=== PATIENT | male | born 1985 | race Caucasian/White ===

== ENCOUNTER 2024-03-15 20:40 | Emergency (ER) | payer OTHER, MEDICAID ==
[~2024-03-15] VITALS: Ht 177.8 cm; Wt 81.6 kg
[2024-03-15] MEDS: IV NORMAL SALINE 1000 ML BAG IV ONE (20:45)
[2024-03-15] MEDS: PHENOBARBITAL SODIUM 130 MG/1 ML DISP.SYRIN IV ONE (21:05)
[2024-03-15] MEDS: THIAMINE HCL 100 MG TABLET PO ONE (21:05)
[2024-03-15] MEDS: LORAZEPAM 2 MG/1 ML VIAL IV ONE ×2 (21:05→22:34)
[2024-03-15] MEDS: levETIRAcetam IV 1,000 MG in IV DEXTROSE 5% 100 ML IV ONE (21:05)
[2024-03-15] MEDS: FOLIC ACID 1 MG TABLET PO ONE (21:05)
[2024-03-15] MEDS ORDERED: levETIRAcetam 500 MG/5 ML VIAL IV ONE (21:06)
[2024-03-15 21:07] LABS: BASOPHILS # (AUTO) 0.1 K/UL (0.0-0.2); BASOPHILS % (AUTO) 0.8 % (0.0-2.0); DIFFERENTIAL COMMENT 1; EOSINOPHILS % (AUTO) 0.1 % (0.0-7.0); HEMATOCRIT 37.7 % (36.7-47.1); HEMOGLOBIN 13.3 g/dL (12.5-16.3); LYMPHOCYTES # (AUTO) 1.7 K/uL (0.8-4.8); LYMPHOCYTES % (AUTO) 21.9 % (20.5-51.5); MEAN CORPUSCULAR HEMOGLOBIN 30.9 uug (23.8-33.4); MEAN CORPUSCULAR HGB CONC 35 g/dL (32.5-36.3); MEAN CORPUSCULAR VOLUME 87.8 fL (73.0-96.2); MONOCYTES # (AUTO) 0.8 K/uL (0.1-1.30); MONOCYTES % (AUTO) 9.6 % (0.0-11.0); NEUTROPHILS # (AUTO) 5.4 K/uL (1.8-8.9); NEUTROPHILS % (AUTO) 67.6 % (38.5-71.5); PLATELET COUNT (AUTO) 101 K/uL (152-348); RED CELL DISTRIBUTION WIDTH 14.6 % (12.1-16.2); WHITE BLOOD COUNT (AUTO) 7.9 K/uL (3.6-10.2)
[2024-03-15 21:12] LABS: ALBUMIN 4.1 g/dL (3.4-5.0); CALCIUM 9.2 mg/dL (8.5-10.1); MAGNESIUM 1.7 mg/dL (1.8-2.4); TOTAL PROTEIN, SERUM 8.4 g/dL (6.4-8.2)
[2024-03-15 21:17] LABS: POTASSIUM 2.5 mmol/L (3.5-5.1)
[2024-03-15 21:18] LABS: ETHANOL < 3 MG/DL (0-10); LACTIC ACID 8.8 mmol/L (0.4-2.0)
[2024-03-15] MEDS: POTASSIUM CHLORIDE 50 ML IV SCH (21:30)
[2024-03-15] MEDS ORDERED: POTASSIUM CHLORIDE 200 ML ONE (21:40)
[2024-03-15] MEDS ORDERED: LORAZEPAM 2 MG/1 ML VIAL ONE (22:29)
[2024-03-15] MEDS: MAGNESIUM SULFATE/D5W 100 ML IV SCH (22:30)
[2024-03-15] MEDS: IV NORMAL SALINE 500 ML BAG IV ONE (22:34)
[2024-03-15 22:47] LABS: ACETAMINOPHEN < 10.0 ug/mL (10-30)
[2024-03-16] MEDS: LORAZEPAM 2 MG/1 ML VIAL IV ONE ×2 (00:26→03:30)
[2024-03-16] MEDS ORDERED: LORAZEPAM 2 MG/1 ML VIAL ONE ×2 (00:26→03:22)
[2024-03-16 00:54] LABS: *AMPHETAMINE, URINE NEGATIVE (NEGATIVE); *BARBITURATE, URINE POSITIVE (NEGATIVE); *BENZODIAZEPINE, URINE NEGATIVE (NEGATIVE); *CANNABINOID, URINE NEGATIVE (NEGATIVE); *COCCAINE, URINE NEGATIVE (NEGATIVE); *OPIATE, URINE NEGATIVE (NEGATIVE); *PHENCYCLIDINE SCREEN,URINE NEGATIVE (NEGATIVE); FENTANYL, URINE NEGATIVE (NEGATIVE)
[2024-03-16 03:11] VITALS: O2SAT 95
== END 2024-03-16 03:38 | disposition short-term general hospital (02) ==
LOC: ER 20:44
DX: R56.9 Unspecified convulsions (principal); F10.139 Alcohol abuse with withdrawal, unspecified; E87.6 Hypokalemia; Z20.822 Contact with and (suspected) exposure to COVID-19; Y90.9 Presence of alcohol in blood, level not specified
CPT/HCPCS: 80053; 82248; 83735; 85025; 87426; 36415; 71045; 70450; 93005; 99291; 96365; 96366; 96368; 96375; 96376 ×2; 83605 ×2; 80299; 80320; 80307; J1953; J2060 ×4; J3475; J2560; J3480; J7040 ×2; A4606; A4663; G0480